=== PATIENT | female | born 2000 ===

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

== ENCOUNTER 2018-02-05 20:39 | Emergency (ER) | payer OTHER ==
--- NOTE | 2018-02-05 21:18 | ED PDOC ---
Arrival/HPI <Rajesh Camarena - Last Filed: 02/05/18 21:33> - General Historian: Patient <Sandra Mendosa - Last Filed: 02/05/18 21:55> - General Time Seen by Provider: 02/05/18 21:12 - History of Present Illness Narrative History of Present Illness (Text): 02/05/18 21:15 17yo female with no pmhx present with complaint of painful lump to her left sided neck. States she noticed the lump today. Reports having chills few days ago that resolved. Denies fever, nausea, vomiting, sore throat, any other complaint. (Sandra Mendosa A) Past Medical History - Provider Review Nursing Documentation Reviewed: Yes - Tetanus Immunization Tetanus Immunization: Up to Date - Cardiac Hx Cardiac Disorders: No - Pulmonary Hx Respiratory Disorders: No - Neurological Hx Neurological Disorder: No - HEENT Hx HEENT Disorder: No - Renal Hx Renal Disorder: No - Endocrine/Metabolic Hx Endocrine Disorders: No - Hematological/Oncological Hx Blood Disorders: No - Integumentary Hx Dermatological Disorder: No - Musculoskeletal/Rheumatological Hx Musculoskeletal Disorders: No - Gastrointestinal Hx Gastrointestinal Disorders: No - Genitourinary/Gynecological Other/Comment: DYSMENORHEA - Psychiatric Hx Psychophysiologic Disorder: No Hx Substance Use: No - Anesthesia Hx Anesthesia: No <Sandra Mendosa - Last Filed: 02/05/18 21:55> Family/Social History - Physician Review Nursing Documentation Reviewed: Yes Family/Social History: Unknown Family HX Smoking Status: Never Smoked Hx Alcohol Use: No Hx Substance Use: No <Sandra Mendosa A - Last Filed: 02/05/18 21:55> Allergies/Home Meds <Rajesh Camarena - Last Filed: 02/05/18 21:33> <Sandra Mendosa A - Last Filed: 02/05/18 21:55> Allergies/Adverse Reactions: Allergies No Known Allergies Allergy (Verified 04/24/17 23:17) Review of Systems - Physician Review All systems were reviewed & negative as marked: Yes - Review of Systems Constitutional: Normal Eyes: Normal ENT: Normal Respiratory: Normal Cardiovascular: Normal Gastrointestinal: Normal Genitourinary Female: Normal Musculoskeletal: Normal Skin: Normal Neurological: Normal Endocrine: Normal Hemo/Lymphatic: Adenopathy Psychiatric: Normal <Sandra Mendosa A - Last Filed: 02/05/18 21:55> Physical Exam Vital Signs Reviewed: Yes Temperature: Afebrile Blood Pressure: Normal Pulse: Regular Respiratory Rate: Normal Appearance: Positive for: Well-Appearing, Non-Toxic, Comfortable Pain Distress: None Mental Status: Positive for: Alert and Oriented X 3 - Systems Exam Head: Present: Atraumatic, Normocephalic Pupils: Present: PERRL Extroacular Muscles: Present: EOMI Conjunctiva: Present: Normal Mouth: Present: Moist Mucous Membranes Neck: Present: Normal Range of Motion Respiratory/Chest: Present: Clear to Auscultation, Good Air Exchange. No: Respiratory Distress, Accessory Muscle Use Cardiovascular: Present: Regular Rate and Rhythm, Normal S1, S2. No: Murmurs Abdomen: No: Tenderness, Distention, Peritoneal Signs Back: Present: Normal Inspection Upper Extremity: Present: Normal Inspection. No: Cyanosis, Edema Lower Extremity: Present: Normal Inspection. No: Edema Neurological: Present: GCS=15, CN II-XII Intact, Speech Normal Skin: Present: Warm, Dry, Normal Color. No: Rashes Lymphatic: Present: Cervical Adenopathy (LEft sided cervical node tender and palpable) Psychiatric: Present: Alert, Oriented x 3, Normal Insight, Normal Concentration <Sandra Mendosa A - Last Filed: 02/05/18 21:55> Vital Signs Temp Pulse Resp BP Pulse Ox 02/05/18 21:20 98.9 F 66 20 98 02/05/18 21:16 98.9 F 86 20 100/56 L 98 - Medication Orders Current Medication Orders: Discontinued Medications Amoxicillin (Amoxil 500 Mg Cap) 500 mg PO STAT STA PRN Reason: Protocol Stop: 02/05/18 21:24 Last Admin: 02/05/18 21:32 Dose: 500 mg Ibuprofen (Motrin Tab) 600 mg PO STAT STA Stop: 02/05/18 21:24 Last Admin: 02/05/18 21:32 Dose: 600 mg MAR Pain/Vitals Document 02/05/18 21:32 RE (Rec: 02/05/18 21:32 RE [email or web address] Pain Reassessment Is This A Pain ReAssessment? No Sleep Is patient sleeping during reassessment? No Presence of Pain Presence of Pain Yes Pain Scale Used Pain Scale Used Numeric Location Pain Location Body Site Neck - PA / STONE CUTTER / Resident Statement MD/DO has reviewed & agrees with the documentation as recorded. <Rajesh Camarena - Last Filed: 02/05/18 21:33> Disposition/Present on Arrival <Rajesh Camarena - Last Filed: 02/05/18 21:33> - Present on Arrival Any Indicators Present on Arrival: No History of DVT/PE: No History of Uncontrolled Diabetes: No Urinary Catheter: No History Surgical Site Infection Following: None - Disposition Have Diagnosis and Disposition been Completed?: Yes Disposition Time: 21:20 Patient Plan: Discharge <Sandra Mendosa - Last Filed: 02/05/18 21:55> - Disposition Diagnosis: Cervical lymphadenopathy Disposition: HOME/ ROUTINE Patient Problems: Current Active Problems Problem Status Onset Cervical lymphadenopathy Acute Condition: STABLE Discharge Instructions (ExitCare): Chronic Lymphadenitis (DC) Additional Instructions: Follow up with your Doctor Return to ED for any new or worsening symptoms Prescriptions: Amoxicillin 500 mg PO BID #14 tablet Referrals: Ilana Zuluaga MD [Staff Provider] - Follow up with primary
[2018-02-05 21:23] VITALS: BP 100/56; RESP 20; TEMP 98.9; O2SAT 98; BMI 27.6
[2018-02-05 21:29] VITALS: PULSE 66
== END 2018-02-05 22:30 | disposition home or self-care (01) ==
LOC: ED 20:39
DX: R59.0 Localized enlarged lymph nodes (principal)

== ENCOUNTER 2018-02-28 14:26 | Emergency (ER) | payer OTHER ==
[2018-02-28 14:26] VITALS: BMI 27.6
[2018-02-28 14:39] VITALS: PULSE 76; RESP 18; TEMP 97.8
[2018-02-28 16:41] VITALS: BP 118/62; O2SAT 97
--- NOTE | 2018-02-28 17:36 | ED PDOC ---
Arrival/HPI - General Historian: Patient <Ana MariafranciscaLumaEdgar - Last Filed: 02/28/18 19:03> <Raymon Lara DO - Last Filed: 02/28/18 21:44> - General Chief Complaint: GI Problem Time Seen by Provider: 02/28/18 14:59 - History of Present Illness Narrative History of Present Illness (Text): 02/28/18 17:31 17 year old female, past medical history of asthma, lactose intolerance, dysmenorrhea, and hemorrhoids, presents to the Emergency department with rectal bleeding. Patient states she has had hemorrhoids for over a year. She experiences bleeding during bowel movements and noticed her underwear will have blood on it. For the past 1.5 months she has been experiencing more episodes of diarrhea and unintentional weight loss. Her diet is not limited to anything and she does eat dairy products regularly. She has not changed her dietary habits or started new medications since symptom onset. She does not experience any pain in the rectum. Patient does not take any medicines to help with the diarrhea. She was given a cream for hemorrhoids a while back that she used and it did not help. She has not seen a GI doctor for these ongoing symptoms. Denies fever, chills, shortness of breath, chest pain, palpitations, headache, dizziness, syncope, abdominal pain, or urinary symptoms. (Edgar Zambrano) Past Medical History - Provider Review Nursing Documentation Reviewed: Yes - Infectious Disease Hx of Infectious Diseases: None - Tetanus Immunization Tetanus Immunization: Up to Date - Cardiac Hx Cardiac Disorders: No - Pulmonary Hx Respiratory Disorders: No - Neurological Hx Neurological Disorder: No - HEENT Hx HEENT Disorder: No - Renal Hx Renal Disorder: No - Endocrine/Metabolic Hx Endocrine Disorders: No - Hematological/Oncological Hx Blood Disorders: No - Integumentary Hx Dermatological Disorder: No - Musculoskeletal/Rheumatological Hx Musculoskeletal Disorders: No - Gastrointestinal Hx Gastrointestinal Disorders: Yes Hx Hemorrhoids: Yes - Genitourinary/Gynecological Hx Sexually Transmitted Diseases: Yes (Chlamydia ) Other/Comment: DYSMENORHEA - Psychiatric Hx Psychophysiologic Disorder: No Hx Substance Use: No - Anesthesia Hx Anesthesia: No <Edgar Zambrano - Last Filed: 02/28/18 19:03> Family/Social History - Physician Review Nursing Documentation Reviewed: Yes Family/Social History: No Known Family HX Smoking Status: Current Some Days Smoker Hx Alcohol Use: No Hx Substance Use: No <Edgar Zambrano - Last Filed: 02/28/18 19:03> Allergies/Home Meds <Edgar Zambrano - Last Filed: 02/28/18 19:03> <Raymon Lara DO - Last Filed: 02/28/18 21:44> Allergies/Adverse Reactions: Allergies No Known Allergies Allergy (Verified 04/24/17 23:17) Home Medications: Home Meds Medication Instructions Recorded Confirmed No Known Home Med 02/28/18 02/28/18 Review of Systems - Patients Enrolled in [employer] [X]: A conversation was conducted with the primary medical doctor. - Physician Review All systems were reviewed & negative as marked: Yes - Review of Systems Constitutional: Weight Change. absent: Fevers Eyes: absent: Vision Changes ENT: absent: Hearing Changes Respiratory: absent: SOB, Cough Cardiovascular: absent: Chest Pain, Palpitations Gastrointestinal: Stool Changes, Diarrhea, Hematochezia. absent: Abdominal Pain , Nausea, Vomiting, Appetite Changes, Hematemesis, Anorexia, Food Intolerance Genitourinary Female: absent: Dysuria Musculoskeletal: absent: Arthralgias, Back Pain Skin: absent: Rash Neurological: absent: Headache, Dizziness Endocrine: absent: Diaphoresis <Edgar Zambrano - Last Filed: 02/28/18 19:03> Physical Exam Vital Signs Reviewed: Yes Temperature: Afebrile Blood Pressure: Normal Pulse: Regular Respiratory Rate: Normal Appearance: Positive for: Well-Appearing, Non-Toxic, Comfortable Pain Distress: None Mental Status: Positive for: Alert and Oriented X 3 - Systems Exam Head: Present: Atraumatic, Normocephalic Pupils: Present: PERRL Extroacular Muscles: Present: EOMI Conjunctiva: Present: Normal Mouth: Present: Moist Mucous Membranes Respiratory/Chest: Present: Clear to Auscultation, Good Air Exchange. No: Respiratory Distress, Accessory Muscle Use Cardiovascular: Present: Regular Rate and Rhythm, Normal S1, S2. No: Murmurs Abdomen: No: Tenderness, Distention, Peritoneal Signs Rectal: Present: Occult Blood, Gross Blood, Hemorrhoids, Normal Rectal Tone. No : Rectal Tenderness, Melena, Fissures, Nodule/Mass/Lesions Skin: Present: Warm, Dry, Normal Color. No: Rashes Psychiatric: Present: Alert, Oriented x 3 <Edgar Zambrano - Last Filed: 02/28/18 19:03> Vital Signs Temp Pulse Resp BP Pulse Ox 02/28/18 15:39 97.8 F 76 18 118/62 97 02/28/18 14:35 97.8 F 76 18 108/69 100 Medical Decision Making <Edgar Zambrano - Last Filed: 02/28/18 19:03> <Raymon Lara DO - Last Filed: 02/28/18 21:44> ED Course and Treatment: 02/28/18 17:38 17 year old female presents to the Emergency department with rectal bleeding secondary to hemorrhoids. Patient FOBT positive and dried blood was visible on examination. She has a history of hemorrhoids and has used cortisone cream which provided no resolution of symptoms. Patient has never seen a blind stitch machine operator in the past. Patient is currently stable, no tachycardia, hypotension, or pallor noted. Patient will follow up with GI Dr. Osuna within the next 3-5 days for further work up and treatment. Advised on a fibrous diet. Patient verbalized understanding and agreement of the treatment plan. Case discussed and reviewed with attending provider. (Edgar Zambrano) Patient is a 17 year old female, whose past medical history asthma, lactose intolerance, dysmenorrhea, and hemorrhoids, presenting to the Emergency room with rectal bleeding. Occult blood, gross blood, hemorrhoids, normal rectal tone as stated on physical exam. Patient Seen With Resident: In agreement with resident note. Patient was seen and evaluated with resident, came up with plan and treatment together. (Raymon Lara DO) - PA / LUNCHROOM AIDE / Resident Statement TITUS has reviewed & agrees with the documentation as recorded. TITUS has examined the patient and agrees with the treatment plan. <Raymon Lara DO - Last Filed: 02/28/18 21:44> Disposition/Present on Arrival - Present on Arrival Any Indicators Present on Arrival: No History of DVT/PE: No History of Uncontrolled Diabetes: No Urinary Catheter: No History of Decub. Ulcer: No History Surgical Site Infection Following: None - Disposition Have Diagnosis and Disposition been Completed?: Yes Disposition Time: 17:42 Patient Plan: Discharge <Edgar Zambrano - Last Filed: 02/28/18 19:03> - Disposition Disposition Time: 15:10 <Marco GONSALVESRaymon - Last Filed: 02/28/18 21:44> - Disposition Diagnosis: External hemorrhoid Disposition: HOME/ ROUTINE Condition: GOOD Discharge Instructions (ExitCare): Hemorrhoids (DC) Additional Instructions: MARYELLEN COHN, thank you for letting us take care of you today. The emergency medical care you received today was directed at your acute symptoms. If you were prescribed any medication, please fill it and take as directed. It may take several days for your symptoms to resolve. Return to the Emergency Department if your symptoms worsen, do not improve, or if you have any other problems. Please contact your doctor or call one of the physicians/clinics you have been referred to that are listed on the Patient Visit Information form that is included in your discharge packet. Bring any paperwork you were given at discharge with you along with any medications you are taking to your follow up visit. Our treatment cannot replace ongoing medical care by a primary care provider outside of the emergency department. Thank you for allowing the [facility] team to be part of your care today. Consider taking [id number] iron tablets. Follow up with the GI doctor this week for re-evaluation and further management. Referrals: Isaac Osuna DO [Staff Provider] - Follow up with primary Forms: [employer] (Khmer)
== END 2018-02-28 15:40 | disposition home or self-care (01) ==
LOC: ED 14:26
DX: K64.4 Residual hemorrhoidal skin tags (principal); E73.9 Lactose intolerance, unspecified